=== PATIENT | female | born 1980 | race Caucasian/White ===

== ENCOUNTER → 2017-06-16 | Outpatient (CLI) | payer OTHER ==
--- NOTE | 2017-06-17 10:26 | PCVCIMAG ---
APPROVED REPORT Exam: Stress Echocardiogram Indication: Palpitations , Chest pain Patient Location: Echo lab Stress Nurse: Yanna Rojo RN Status: routine Ht: 5 ft 5 in HR: 114 bpm BP: 116/84 mmHg Rhythm: Tachycardia Procedure The patient underwent an Exercise Stress Test using the Jam Protocol. Blood pressure, heart rate, and EKG were monitored. An Echocardiogram was performed by cable technician in four stages in quad fashion. At peak stress, four selected images were obtained and placed side by side with resting images for comparison. Stress Test Details Stress Test: Exercise stress testing was performed using a Jam protocol. HR Resting HR: 114 bpmMax Heart Rate (APMHR): 181 bpm Max HR Achieved: 187 bpmTarget HR (85% APMHR): 153 bpm % of APMHR: 103 Recovery HR: 118 bpm HR response to stress: Normal HR response to stress BP Resting BP: 116/84 mmHg Max BP: 220/90 mmHg Recovery BP: 154/72 mmHg ECG Resting ECG: Sinus Rhythm with non-specific ST abnormality Stress ECG: Sinus Rhythm with non-specific T wave abnormality Arrhythmia: None Recovery ECG: Sinus Rhythm, nonspecific ST-T abnormalities Recovery Arrhythmia: None Clinical Reason for Termination: Maximal effort Stress Symptoms: Non-limiting chest pain at rest that did not worsen with exercise Exercise duration: 8 min 59 sec Highest Stage Achieved: Stage 3: 3.4 mph at 14% grade. Exercise capacity: 10.4 METs Overall Exercise Capacity for Age: Normal Angina Score: Non-Limiting Stress ECG Conclusion 1. SUBJECTIVELY NEGATIVE FOR ISCHEMIA 2. ELECTROCARDIOGRAPHICALLY NEGATIVE FOR ISCHEMIA 3. AVERAGE FUNCTIONAL CAPACITY Pre-Stress Echo The resting Echocardiogram showed normal left ventricular contractility with an estimated Ejection Fraction of about >55%. Normal wall motion in all segments on baseline images. Post-Stress Echo The stress Echocardiogram showed normal left ventricular contractility with an estimated Ejection Fraction of about 65%. Normal augmentation of wall motion in all segments on post stress images. Clinical No clinical or ECG evidence for ischemia. Conclusion Clinical Response: Non-ischemic Stress ECG Response: Non-ischemic Stress Echo Images: Non-ischemic The left ventricle is normal in size and wall thickness in both the rest and stress images. 1. LOW RISK STUDY Other Information Study Quality: Adequate <Conclusion> The left ventricle is normal in size and wall thickness in both the rest and stress images. 1. LOW RISK STUDY
== END | disposition home or self-care (01) ==
LOC: PCVCIMAG 14:58
PROVIDERS: ATTEND Internal Medicine
DX: R07.9 Chest pain, unspecified (principal); R00.2 Palpitations
CPT/HCPCS: 93325; 93351